=== PATIENT | male | born 1975 | race Caucasian/White ===

== ENCOUNTER 2021-04-12 14:15 | Emergency (ER) | payer OTHER, SELFPAY ==
[2021-04-12] MEDS ORDERED: ONDANSETRON 4 MG/2 ML VIAL ONE (15:36)
[2021-04-12] MEDS ORDERED: MORPHINE 4 MG/ML SYR ONE (15:36)
[2021-04-12] MEDS ORDERED: NA CHLORIDE 0.9% 1,000 ML ONE (16:24)
[2021-04-12] MEDS ORDERED: NA CHLORIDE 0.9% 100 ML ONE ×2 (16:24→16:41)
[2021-04-12] MEDS ORDERED: CEFEPIME 1 GM/VIAL ONE (16:24)
[2021-04-12] MEDS ORDERED: METHOCARBAMOL 1,000 MG/10 ML VIAL IV ONE (16:41)
[2021-04-12] MEDS ORDERED: VANCOMYCIN/NS 1 gm 1 GM/250 ML BAG IVPB ONE (17:00)
[2021-04-12] MEDS ORDERED: CEFEPIME 1 GM in NA CHLORIDE 0.9% 100 ML IV ONE (17:00)
--- NOTE | 2021-04-12 19:19 | RAD REPORT ---
EXAM DESCRIPTION: MRI - Lumbar Spine Wo Lawson - 04/12/2021 7:00 pm CLINICAL HISTORY: Incontinence, left leg numbness COMPARISON: CT dated 07/12/2015 TECHNIQUE: Sagittal T1-weighted, T2-weighted and T2-STIR weighted sequences were obtained. Axial T1 -weighted and heavily T2-weighted sequenceswere obtained through the lumbar disc levels. FINDINGS: Benign lesion in L4 is unchanged. Conus is normal with no clumping or thickening of the cauda equina. T12-L1 level: No significant findings. L1-2 level: No significant findings. L2-3 level: Broad-based disc bulge with mild ligamentum flavum facet hypertrophy but no significant n eural foraminal narrowing or central spinal stenosis. L3-4 level: Broad-based disc bulge with ligamentum flavum and facet hypertrophy without significant c entral spinal stenosis or significant neural foraminal narrowing. L4-5 level: Broad-based disc bulge mild facet and ligamentum flavum hypertrophy is noted. There has b een a right sided laminectomy at this level. There is encroachment on the traversing L5 nerve roots, left greater than right. Disc height loss is present. L5-S1 level: Disc height loss is present. No significant neural foraminal narrowing or central spinal stenosis. IMPRESSION: Mild degenerative disc disease most notably at L4-5 where a combination of factors resul ts in encroachment on the traversing bilateral L5 nerve roots, left greater than right, which could r esult in a left-sided radiculopathy. No central spinal stenosis identified.
--- NOTE | 2021-04-12 19:21 | RAD REPORT ---
EXAM DESCRIPTION: MRI - Thoracic Spine Wo Contr - 04/12/2021 6:51 pm CLINICAL HISTORY: pain COMPARISON: <Comparisons> FINDINGS: The vertebral body heights and disc spaces are maintained. Marrow pattern of the thoracic spine is within normal limits. No significant herniated disc, canal stenosis or foraminal stenosis at any level. No paraspinal mass or hematoma. The thoracic cord is normal in size and signal. IMPRESSION: No significant focal abnormality identified.
[2021-04-12 19:43] LABS: Urine Blood 1+ (Negative); Urine Glucose Negative (Negative); Urine Protein Negative (Negative); Urine Specific Gravity 1.025 (1.005-1.030); Urine pH 5.5 (5.0-7.0)
--- NOTE | 2021-04-12 19:50 | ER ---
Nurse's Notes [facility] Name: Adryan Kimball Age: 46 yrs Sex: Male : 1975 Arrival Date: 04/12/2021 Time: 14:16 Bed 7 Private MD: Diagnosis: Dysuria;Low back pain-L4L5 DDD Presentation: 04/12 14:22 Chief complaint: Patient states: Urinary incontinence today. Pt has chronic back ss problems/ pain and his doctor told him to come to nearest ED immediately for evaluation. Coronavirus screen: Client denies travel out of the [place] in the last 14 days. Ebola Screen: Patient denies exposure to infectious person. Patient denies travel to an Ebola-affected area in the 21 days before illness onset. Initial Sepsis Screen: Does the patient meet any 2 criteria? No. Patient's initial sepsis screen is negative. Does the patient have a suspected source of infection? No. Patient's initial sepsis screen is negative. Risk Assessment: Do you want to hurt yourself or someone else? Patient reports no desire to harm self or others. Onset of symptoms was April 12, 2021. 14:22 Method Of Arrival: Ambulatory ss 14:22 Acuity: LILIA 2 ss Historical: - Allergies: 14:23 Naprosyn; ss - Home Meds: 14:23 Gabapentin [Active]; Tramadol Oral [Active]; Flexeril Oral [Active]; ss - PMHx: 14:23 "extreme anxiety"; ss - PSHx: 14:23 Laminectomy; ss - Immunization history:: Client reports receiving the 2nd dose of the Covid vaccine. - Social history:: Smoking status: Patient reports the use of cigarette tobacco products, smokes one-half pack cigarettes per day. Screenin:47 Abuse screen: Denies threats or abuse. Nutritional screening: No deficits noted. jd3 Tuberculosis screening: No symptoms or risk factors identified. Fall Risk Ambulatory Aid- None/Bed Rest/Nurse Assist (0 pts). Gait- Normal/Bed Rest/Wheelchair (0 pts) Mental Status- Oriented to own ability (0 pts). Total Caruso Fall Scale indicates No Risk (0-24 pts). Assessment: 14:41 General: Appears in no apparent distress. uncomfortable, Behavior is cooperative, jd3 appropriate for age, anxious, restless. Pain: Complains of pain in low back area Quality of pain is described as sharp, shooting, piercing. Neuro: Level of Consciousness is awake, alert, obeys commands, Oriented to person, place, time, situation, Denies weakness blurred vision dizziness, paresthesias. Cardiovascular: Denies chest pain, Capillary refill < 3 seconds Patient's skin is warm and dry. Respiratory: Airway is patent Respiratory effort is even, unlabored, Respiratory pattern is regular, symmetrical, Denies cough, shortness of breath. GI: No signs and/or symptoms were reported involving the gastrointestinal system. Patient currently denies diarrhea, nausea, vomiting. : Reports incontinence, since pt reports waking up with incontinence. reports dribbling urine throughout the day when attempting to pee extra sensitiveness to head of penis. EENT: No signs and/or symptoms were reported regarding the EENT system. Derm: Skin is intact, Skin is dry, Skin is normal, Skin temperature is warm. Musculoskeletal: Circulation, motion, and sensation intact. Range of motion: intact in all extremities. 15:26 Reassessment: No changes from previously documented assessment. Patient and/or family jd3 updated on plan of care and expected duration. Pain level reassessed. Patient is alert, oriented x 3, equal unlabored respirations, skin warm/dry/pink. awaiting MRI. 16:40 Reassessment: Patient appears in no apparent distress at this time. No changes from jd3 previously documented assessment. Patient and/or family updated on plan of care and expected duration. Pain level reassessed. Patient is alert, oriented x 3, equal unlabored respirations, skin warm/dry/pink. awaiting scans. 17:42 Reassessment: Patient appears in no apparent distress at this time. Patient and/or jd3 family updated on plan of care and expected duration. Pain level reassessed. Patient is alert, oriented x 3, equal unlabored respirations, skin warm/dry/pink. Patient states feeling better. 18:43 Reassessment: Patient appears in no apparent distress at this time. No changes from jd3 previously documented assessment. Patient and/or family updated on plan of care and expected duration. Pain level reassessed. Patient is alert, oriented x 3, equal unlabored respirations, skin warm/dry/pink. 20:00 Reassessment: Patient appears in no apparent distress at this time. Patient is unhappy dc2 with visit and information given . Dr. Ching informed and will speak to patient. 20:28 Reassessment: Pt states he is satisfied with speaking to dr. Ching, is pleasant at dc2 this time. VSS, Discharge papers reviewed and pt voies understanding. Vital Signs: 14:22 BP 140 / 101; Pulse 131; Resp 18; Temp 97.0(TE); Pulse Ox 99% on R/A; Weight 112.49 kg; ss Height 6 ft. 0 in. (182.88 cm); Pain 8/10; 14:46 Pulse 126; Resp 18 S; Pulse Ox 97% on R/A; jd3 16:40 BP 111 / 83; Pulse 86; Resp 17 S; Pulse Ox 97% on R/A; jd3 17:42 BP 123 / 78; Pulse 80; Resp 17 S; Pulse Ox 98% on R/A; jd3 18:44 BP 123 / 78; Pulse 71; Resp 16 S; Pulse Ox 98% on R/A; jd3 19:45 BP 143 / 87; Pulse 97; Resp 20; Temp 97.1; Pulse Ox 98% ; Pain 8/10; dc2 14:22 Body Mass Index 33.63 (112.49 kg, 182.88 cm) ss ED Course: 14:16 Patient arrived in ED. ds1 14:23 Triage completed. ss 14:23 Arm band placed on right wrist. ss 14:30 Serafin Cruz, RN is Primary Nurse. jd3 14:47 Patient has correct armband on for positive identification. Placed in gown. Bed in low jd3 position. Call light in reach. Pulse ox on. NIBP on. 15:25 Warm blanket given. Verbal reassurance given. jd3 15:25 Inserted saline lock: 20 gauge in left wrist, using aseptic technique. jd3 15:31 Dash Bingham MD is Attending Physician. kdr 16:39 Inserted saline lock: 20 gauge in right antecubital area, using aseptic technique. jd3 18:44 Attending Physician role handed off by Dash Bingham MD denia 18:44 Mt Ching MD is Attending Physician. denia 18:51 MRI Lumbar Spine wo Con In Process Unspecified. EDMS 18:51 Thoracic Spine Wo Contr In Process Unspecified. EDMS 19:50 Timoteo Hunter MD is Referral Physician. denia 19:50 Nato Dueñas MD is Referral Physician. denia 20:05 ED physician to see patient. dc2 Administered Medications: 15:13 Drug: Zofran (Ondansetron) 4 mg Route: IVP; Site: left wrist; ch5 16:00 Follow up: Response: No adverse reaction jd3 15:14 Drug: morphine 4 mg Route: IVP; Site: left wrist; ch5 16:00 Follow up: Response: No adverse reaction; RASS: Alert and Calm (0) jd3 16:00 Drug: Cefepime 1 grams Route: IVPB; Rate: 200 ml/hr; Infused Over: 30 mins; Site: left jd3 wrist; 16:39 Follow up: Response: No adverse reaction; IV Status: Completed infusion jd3 19:30 Follow up: IV Status: Completed infusion; IV Intake: 100ml dc2 16:11 Drug: NS 0.9% 1000 ml Route: IV; Rate: 1 bolus; Site: left wrist; jd3 16:39 Drug: vancoMYCIN 1 grams Route: IVPB; Infused Over: 2 hrs; Site: left wrist; jd3 16:39 Drug: Robaxin (methocarbamol) 1 grams Route: IVPB; Infused Over: 1 hrs; Site: right jd3 antecubital; 19:33 Follow up: IV Status: Completed infusion; IV Intake: 100ml dc2 19:58 Follow up: IV Status: Completed infusion; IV Intake: 100ml dc2 19:45 Drug: Flomax (tamsulosin) 0.4 mg Route: PO; dc2 19:45 Drug: Decadron - Dexamethasone 10 mg Route: IVP; Site: right antecubital; dc2 19:45 Drug: Valium (diazepam) 5 mg Route: PO; dc2 Intake: 19:30 IV: 100ml; Total: 100ml. dc2 19:33 IV: 100ml; Total: 200ml. dc2 19:58 IV: 100ml; Total: 300ml. dc2 Outcome: 19:49 Discharge ordered by . denia 20:29 Discharged to home ambulatory. dc2 20:29 Condition: stable 20:29 Discharge instructions given to Instructed on discharge instructions, follow up and referral plans. Demonstrated understanding of instructions, follow-up care, Prescriptions given X 4. 20:30 Patient left the ED. dc2 Signatures: Dispatcher [employer] EDPA Mt Ching MD MD cha Rittger, Kevin, MD MD kdr Sanford, Demi ds1 Evelia Sage RN RN ss Serafin Cruz RN RN jd3 Ferdinand Schaefer RN RN ch5 Betty Spencer RN RN dc2
--- NOTE | 2021-04-12 19:50 | EDPHYS ---
Physician Documentation [facility] Name: Adryan Kimball Age: 46 yrs Sex: Male : 1975 Arrival Date: 04/12/2021 Time: 14:16 Bed 7 Private MD: Mt Curran HPI: 04/12 18:25 This 46 yrs old Male presents to ER via Ambulatory with complaints of Urinary kdr Incontinence. Historical: - Allergies: 14:23 Naprosyn; ss - Home Meds: 14:23 Gabapentin [Active]; Tramadol Oral [Active]; Flexeril Oral [Active]; ss - PMHx: 14:23 "extreme anxiety"; ss - PSHx: 14:23 Laminectomy; ss - Immunization history:: Client reports receiving the 2nd dose of the Covid vaccine. - Social history:: Smoking status: Patient reports the use of cigarette tobacco products, smokes one-half pack cigarettes per day. ROS: 19:42 Constitutional: Negative for fever, chills, and weight loss, Eyes: Negative for injury, denia pain, redness, and discharge, ENT: Negative for injury, pain, and discharge, Neck: Negative for injury, pain, and swelling, Cardiovascular: Negative for chest pain, palpitations, and edema, Respiratory: Negative for shortness of breath, cough, wheezing, and pleuritic chest pain, Abdomen/GI: Negative for abdominal pain, nausea, vomiting, diarrhea, and constipation, : Negative for injury, bleeding, discharge, and swelling, MS/Extremity: Negative for injury and deformity, Skin: Negative for injury, rash, and discoloration, Neuro: Negative for headache, weakness, numbness, tingling, and seizure, Psych: Negative for depression, anxiety, suicide ideation, homicidal ideation, and hallucinations, Allergy/Immunology: Negative for hives, rash, and allergies, Endocrine: Negative for neck swelling, polydipsia, polyuria, polyphagia, and marked weight changes, Hematologic/Lymphatic: Negative for swollen nodes, abnormal bleeding, and unusual bruising. 19:42 Back: Positive for decreased range of motion, pain at rest, of the lumbar area. 19:42 : Positive for bladder incontinence poor stream. Exam: 19:42 Constitutional: This is a well developed, well nourished patient who is awake, alert, denia and in no acute distress. Head/Face: Normocephalic, atraumatic. Eyes: Pupils equal round and reactive to light, extra-ocular motions intact. Lids and lashes normal. Conjunctiva and sclera are non-icteric and not injected. Cornea within normal limits. Periorbital areas with no swelling, redness, or edema. ENT: Nares patent. No nasal discharge, no septal abnormalities noted. Tympanic membranes are normal and external auditory canals are clear. Oropharynx with no redness, swelling, or masses, exudates, or evidence of obstruction, uvula midline. Mucous membranes moist. Neck: Trachea midline, no thyromegaly or masses palpated, and no cervical lymphadenopathy. Supple, full range of motion without nuchal rigidity, or vertebral point tenderness. No Meningismus. Chest/axilla: Normal chest wall appearance and motion. Nontender with no deformity. No lesions are appreciated. Cardiovascular: Regular rate and rhythm with a normal S1 and S2. No gallops, murmurs, or rubs. Normal PMI, no JVD. No pulse deficits. Respiratory: Lungs have equal breath sounds bilaterally, clear to auscultation and percussion. No rales, rhonchi or wheezes noted. No increased work of breathing, no retractions or nasal flaring. Abdomen/GI: Soft, non-tender, with normal bowel sounds. No distension or tympany. No guarding or rebound. No evidence of tenderness throughout. Male : Normal genitalia with no discharge or lesions. Skin: Warm, dry with normal turgor. Normal color with no rashes, no lesions, and no evidence of cellulitis. MS/ Extremity: Pulses equal, no cyanosis. Neurovascular intact. Full, normal range of motion. Neuro: Awake and alert, GCS 15, oriented to person, place, time, and situation. Cranial nerves II-XII grossly intact. Motor strength 5/5 in all extremities. Sensory grossly intact. Cerebellar exam normal. Normal gait. Psych: Awake, alert, with orientation to person, place and time. Behavior, mood, and affect are within normal limits. 19:42 Back: pain, that is mild, ROM is decreased, with flexion, with extension, normal spinal alignment noted, CVA tenderness, is absent, vertebral tenderness, is not appreciated, muscle spasm, is appreciated in the left low back, left mid back, right mid back and right low back. Vital Signs: 14:22 BP 140 / 101; Pulse 131; Resp 18; Temp 97.0(TE); Pulse Ox 99% on R/A; Weight 112.49 kg; ss Height 6 ft. 0 in. (182.88 cm); Pain 8/10; 14:46 Pulse 126; Resp 18 S; Pulse Ox 97% on R/A; jd3 16:40 BP 111 / 83; Pulse 86; Resp 17 S; Pulse Ox 97% on R/A; jd3 17:42 BP 123 / 78; Pulse 80; Resp 17 S; Pulse Ox 98% on R/A; jd3 18:44 BP 123 / 78; Pulse 71; Resp 16 S; Pulse Ox 98% on R/A; jd3 19:45 BP 143 / 87; Pulse 97; Resp 20; Temp 97.1; Pulse Ox 98% ; Pain 8/10; dc2 14:22 Body Mass Index 33.63 (112.49 kg, 182.88 cm) ss MDM: 18:44 Patient medically screened. [facility] 04/13 16:54 Data reviewed: vital signs, nurses notes, lab test result(s), radiologic studies. kdr Counseling: I had a detailed discussion with the patient and/or guardian regarding: the historical points, exam findings, and any diagnostic results supporting the discharge/admit diagnosis, lab results, radiology results, the need for outpatient follow up. 04/12 19:43 Order name: Urine Dipstick-Ancillary; Complete Time: 20:06 [facility] 04/12 15:05 Order name: MRI Lumbar Spine wo Con; Complete Time: 19:29 [facility] 04/12 15:46 Order name: Thoracic Spine Wo Contr; Complete Time: 19:29 [facility] 04/12 15:05 Order name: Saline Lock; Complete Time: 15:13 [facility] Administered Medications: 04/12 15:13 Drug: Zofran (Ondansetron) 4 mg Route: IVP; Site: left wrist; ch5 16:00 Follow up: Response: No adverse reaction j 15:14 Drug: morphine 4 mg Route: IVP; Site: left wrist; ch5 16:00 Follow up: Response: No adverse reaction; RASS: Alert and Calm (0) j 16:00 Drug: Cefepime 1 grams Route: IVPB; Rate: 200 ml/hr; Infused Over: 30 mins; Site: left jd3 wrist; 16:39 Follow up: Response: No adverse reaction; IV Status: Completed infusion jd3 19:30 Follow up: IV Status: Completed infusion; IV Intake: 100ml dc2 16:11 Drug: NS 0.9% 1000 ml Route: IV; Rate: 1 bolus; Site: left wrist; jd3 16:39 Drug: vancoMYCIN 1 grams Route: IVPB; Infused Over: 2 hrs; Site: left wrist; jd3 16:39 Drug: Robaxin (methocarbamol) 1 grams Route: IVPB; Infused Over: 1 hrs; Site: right jd3 antecubital; 19:33 Follow up: IV Status: Completed infusion; IV Intake: 100ml dc2 19:58 Follow up: IV Status: Completed infusion; IV Intake: 100ml dc2 19:45 Drug: Flomax (tamsulosin) 0.4 mg Route: PO; dc2 19:45 Drug: Decadron - Dexamethasone 10 mg Route: IVP; Site: right antecubital; dc2 19:45 Drug: Valium (diazepam) 5 mg Route: PO; dc2 Disposition Summary: 04/12/21 19:49 Discharge Ordered Location: Home denia Problem: new denia Symptoms: have improved denia Condition: Stable denia Diagnosis - Dysuria denia - Low back pain - L4L5 DDD denia Followup: denia - With: Private Physician - When: 2 - 3 days - Reason: Recheck today's complaints, Continuance of care, Re-evaluation by your physician Followup: denia - With: Timoteo Hunter MD - When: 5 - 6 days - Reason: Recheck today's complaints, Re-evaluation by your physician Followup: denia - With: Nato Dueñas MD - When: 2 - 3 days - Reason: Recheck today's complaints, Re-evaluation by your physician Discharge Instructions: - Discharge Summary Sheet denia - Dysuria denia - Musculoskeletal Pain denia - Back Injury Prevention, [id number] denia - Chronic Back Pain, [id number] denia - Benign Prostatic Hyperplasia denia Forms: - Medication Reconciliation Form denia - Thank You Letter denia - Antibiotic Education denia - Prescription Opioid Use denia Prescriptions: - dexamethasone 2 mg Oral tablet - take 1 tablet by ORAL route 2 times per day; 10 tablet; Refills: 0, Product denia Selection Permitted - tamsulosin 0.4 mg Oral capsule - take 1 capsule by ORAL route once daily 1/2 hour following the same meal each [facility] day; 30 capsule; Refills: 0, Product Selection Permitted - Cipro 500 mg Oral Tablet - take 1 tablet by ORAL route every 12 hours for 7 days; 14 tablet; Refills: 0, [facility] Product Selection Permitted - Cyclobenzaprine 5 mg Oral Tablet - take 1 tablet by ORAL route 3 times per day As needed; 15 tablet; Refills: 0, [facility] Product Selection Permitted Signatures: Dispatcher [employer] EDMt Mata MD MD cha Rittger, Kevin, MD MD kdr Mickail, Joel, PA PA jmm Smirch, Shelby, RN RN ss Serafin Cruz RN RN jd3 Ferdinand Schaefer RN RN ch5 Betty Spencer RN RN dc2
[2021-04-12] MEDS ORDERED: DIAZEPAM 5 MG TABLET ONE (20:12)
[2021-04-12] MEDS ORDERED: TAMSULOSIN 0.4 MG SR CAP ONE (20:12)
[2021-04-12] MEDS ORDERED: dexAMETHasone 10 MG/ML VIAL ONE (20:12)
[2021-04-12 20:42] VITALS: O2SAT 98
[2021-04-12 20:45] VITALS: BP 143/87; TEMP 97.1
== END 2021-04-12 20:30 | disposition home or self-care (01) ==
LOC: ER 14:15
DX: R30.0 Dysuria (principal); M51.36 Other intervertebral disc degeneration, lumbar region; F41.9 Anxiety disorder, unspecified; F17.210 Nicotine dependence, cigarettes, uncomplicated; Z88.6 Allergy status to analgesic agent
CPT/HCPCS: 72146; 72148; 81003; 99284; J0692; J1100; J2405; J2800; J3370; J7030

== ENCOUNTER 2022-03-24 14:33 | Emergency (ER) | payer SELFPAY ==
--- OUTSIDE RECORDS SUMMARY | 2022-03-24 14:41 | XMS REPORT | Continuity of Care Document ---
:1975 Author Organization [facility] t Address [address] [place] [address] Care Team Providers Name Role Phone ALANA LAMBERT Primary Care Physician Unavailable LIZZIE MCCABE Attending Clinician Unavailable Alana Lambert MD Attending Clinician [phone] MARYAM NAVARRO Attending Clinician Unavailable Maryam Cobb Attending Clinician ALANA LAMBERT Attending Clinician Unavailable Lizzie Mccabe MD Attending Clinician Doctor Unassigned, [place] Attending Clinician Unavailable Abel Solomon MD Attending Clinician [place] Attending Clinician Unavailable Natividad_BRIDGET Attending Clinician Unavailable [place]ad Admitting Clinician Unavailable Natividad_BRIDGET Admitting Clinician Unavailable Payers Payer Name Policy Type Policy Number Effective Date Expiration Date S ource Problems Condition Condition Condition Status Onset Resolution Last Treating Co mments Source Name Details Category Date Date Treatment Clinician Date Abnormal Abnormal Disease Active 2020-07 Unive rs defecation defecation 0-06 it y of 00:00: [place] [facility] Branch Prostate Prostate Disease Active 2020-07 Unive rs enlargemen enlargemen 0-05 it y of t t 00:00: [place] [facility] Urinary Urinary Disease Active 2020-07 Univers problem problem 0-05 ity of 00:00: [place] [facility] Chronic Chronic Disease Active Univers low back low back 4-28 ity of pain pain 00:00: [place] [facility] Chronic Chronic Disease Active Univers anxiety anxiety 4-28 ity of 00:00: [place] [facility] Lumbar Lumbar Disease Active 2004-07 Univers herniated herniated 0- ity of disc disc 00:00: [place] [facility] No known No known Disease Metho di active active st problems problems Hospit a l Allergies, Adverse Reactions, Alerts Allergy Allergy Status Severity Reaction(s) Onset Inactive Treating Comm ents Source Name Type Date Date Clinician Naproxen Propensi Active Swelling Meth gordon Sodium ty to 07-02 st adverse 00:00: Hospita reaction 00 l s to drug NO KNOWN Drug Active Univers ALLERGIE Class ity of S [facility] Aleve Allergy Active [place] to Family substanc Practic e e Social History Social Habit Start Date Stop Date Quantity Comments Source History of Cigarette Smoker Universi ty of tobacco use [facility] Exposure to 2022-03-07 2022-03-17 Not sure [facility]-CoV-2 00:00:00 18:24:00 [facility] (event) [place] Alcohol intake 2022-03-17 2022-03-17 Current drinker Unive rsity of 00:00:00 00:00:00 of alcohol [facility] (finding) [place] Tobacco use and 2022-02-22 2022-02-22 Smokeless tobacco [facility] exposure 00:00:00 00:00:00 non-user Sex Ass[birth year] At [birth year] [facility] [place] 00:00:00 00:00:00 Smoking Status Start Date Stop Date Source Never smoked tobacco [facility] Ex-smoker 2022-01-17 00:00:00 2022-01-17 00:00:00 [facility] [place] [facility] Medications Ordered Filled Start Stop Current Ordering Indication Dosage Frequency Signature Comments Components Source Medication Medication Date Date Medication? Clinician (SIG) Name Name LORazepam Yes lorazepam Uni vers 0.5 mg 9-15 0.5 mg ity of tablet 10:56: tablet [place] [id number] TAKE 1 Medical TABLET BY Branch MOUTH TWICE DAILY NEEDED LORazepam Yes lorazepam Uni vers 0.5 mg 9-15 0.5 mg ity of tablet 10:56: tablet [place] 48 TAKE 1 Medical TABLET BY Branch MOUTH TWICE DAILY NEEDED LORazepam Yes lorazepam Uni vers 0.5 mg 9-15 0.5 mg ity of tablet 10:56: tablet [place] 48 TAKE 1 Medical TABLET BY Branch MOUTH TWICE DAILY NEEDED hydrOXYzine Yes [id number] Take 1 -2 Univers 25 mg 9-15 cap at ity of capsule 00:00: bedtime [place] [address] for Medical insomnia Branch or anxiety hydrOXYzine Yes [id number] Take 1 -2 Univers 25 mg 9-15 cap at ity of capsule 00:00: bedtime [place] [address] for Medical insomnia Branch or anxiety hydrOXYzine Yes [id number] Take 1 -2 Univers 25 mg 9-15 cap at ity of capsule 00:00: bedtime [place] [address] for Medical insomnia Branch or anxiety meloxicam 2021- Yes [id number] 15mg Take 1 Univers 15 mg 9-06-01 tablet by ity of tablet 00:00: 05:59 mouth in [place] 00 :00 the Medical morning Branch for 90 days. meloxicam 2021- Yes [id number] 15mg Take 1 Univers 15 mg 9-06-01 tablet by ity of tablet 00:00: 05:59 mouth in [place] 00 :00 the Medical morning Branch for 90 days. meloxicam 2021- Yes [id number] 15mg Take 1 Univers 15 mg 9-07 13- tablet by ity of tablet 00:00: 05:59 mouth in [place] 00 :00 the Medical morning Branch for 90 days. meloxicam 2021- Yes [id number] 15mg Take 1 Univers 15 mg 9-06-01 tablet by ity of tablet 00:00: 05:59 mouth in [place] 00 :00 the Medical morning Branch for 90 days. meloxicam 2021- Yes [id number] 15mg Take 1 Univers 15 mg 03-02 tablet by ity of tablet 00:00: 05:59 mouth in [place] 00 :00 the [facility] for 90 days. meloxicam 2021- Yes [id number] 15mg Take 1 Univers 15 mg 03-02 tablet by ity of tablet 00:00: 05:59 mouth in [place] 00 :00 the [facility] for 90 days. meloxicam Yes 15mg QD Take 1 Method i (MOBIC) 15 8-29 tablet (15 st mg tablet 00:00: mg total) Hos linda 00 by mouth l daily. gabapentin 2021- Yes [id number] 300mg Take 1 Univers 300 mg 8-29 11-28 capsule by ity of capsule 00:00: 05:59 mouth in [place] 00 :00 [facility] and 1 capsule at noon and 1 capsule in the evening. Do all this for 90 days. gabapentin 2021- Yes [id number] 300mg Take 1 Univers 300 mg 8-29 11-28 capsule by ity of capsule 00:00: 05:59 mouth in [place] 00 :00 [facility] and 1 capsule at noon and 1 capsule in the evening. Do all this for 90 days. gabapentin 2021- Yes [id number] 300mg Take 1 Univers 300 mg 8-29 11-28 capsule by ity of capsule 00:00: 05:59 mouth in [place] 00 :00 the [facility] and 1 capsule at noon and 1 capsule in the evening. Do all this for 90 days. gabapentin 2021- Yes [id number] 300mg Take 1 Univers 300 mg 8-29 11-28 capsule by ity of capsule 00:00: 05:59 mouth in [place] 00 :00 [facility] and 1 capsule at noon and 1 capsule in the evening. Do all this for 90 days. gabapentin 2021- Yes [id number] 300mg Take 1 Univers 300 mg 8-29 11-28 capsule by ity of capsule 00:00: 05:59 mouth in [place] 00 :00 [facility] and 1 capsule at noon and 1 capsule in the evening. Do all this for 90 days. gabapentin 2021- Yes [id number] 300mg Take 1 Univers 300 mg 02-27- capsule by ity of capsule 00:00: 05:59 mouth in [place] 00 :00 the Medical morning Branch and 1 capsule at noon and 1 capsule in the evening. Do all this for 90 days. gabapentin 2021- Yes [id number] 300mg Take 1 Univers 300 mg 02-27- capsule by ity of capsule 00:00: 05:59 mouth in [place] 00 :00 the [facility] morning Branch and 1 capsule at noon and 1 capsule in the evening. Do all this for 90 days. methylPREDN 2021- No follow Met hodi ISolone 02-[address] (MEDROL 00:00: 04:59 directions Hos linda DOSEPAK) 4 00 :00 l mg tablet tamsulosin 0 Yes [id number] .8mg Take 2 Univers 0.4 mg 24 7-06 capsules ity of hr capsule 00:00: by mouth [place] 00 at Medical bedtime. Branch tamsulosin 0 Yes [id number] .8mg Take 2 Univers 0.4 mg 24 7-06 capsules ity of hr capsule 00:00: by mouth [place] 00 at Medical bedtime. Branch tamsulosin 0 Yes [id number] .8mg Take 2 Univers 0.4 mg 24 7-06 capsules ity of hr capsule 00:00: by mouth [place] 00 at Medical bedtime. Branch tamsulosin 0 Yes [id number] .8mg Take 2 Univers 0.4 mg 24 7-06 capsules ity of hr capsule 00:00: by mouth [place] 00 at Medical bedtime. Branch tamsulosin 0 Yes [id number] .8mg Take 2 Univers 0.4 mg 24 7-06 capsules ity of hr capsule 00:00: by mouth [place] 00 at Medical bedtime. Branch tamsulosin 2021-0 Yes [id number] .8mg Take 2 Univers 0.4 mg 24 7-06 capsules ity of hr capsule 00:00: by mouth [place] 00 at Medical bedtime. Branch tamsulosin 2021-0 Yes [id number] .8mg Take 2 Univers 0.4 mg 24 7-06 capsules ity of hr capsule 00:00: by mouth [place] 00 at Medical bedtime. Branch LORazepam 2021-0 Yes lorazepam Uni vers 0.5 mg 6-23 0.5 mg ity of tablet 10:36: tablet [place] 46 TAKE 1 Medical TABLET BY Branch MOUTH TWICE DAILY NEEDED LORazepam 2021-0 Yes lorazepam Uni vers 0.5 mg 6-23 0.5 mg ity of tablet 10:36: tablet [place] 46 TAKE 1 Medical TABLET BY Branch MOUTH TWICE DAILY NEEDED LORazepam 2021-0 Yes lorazepam Uni vers 0.5 mg 6-23 0.5 mg ity of tablet 10:36: tablet [place] 46 TAKE 1 Medical TABLET BY Branch MOUTH TWICE DAILY NEEDED LORazepam 2021-0 Yes lorazepam Uni vers 0.5 mg 6-23 0.5 mg ity of tablet 10:36: tablet [place] 46 TAKE 1 Medical TABLET BY Branch MOUTH TWICE DAILY NEEDED GABAPENTIN 2021-0 2022- No [id number] TAKE 1 Univers 300 mg 3-22 02- CAPSULE BY ity of capsule 00:00: 00:00 MOUTH [place] 00 :00 THREE Medical TIMES Branch DAILY traMADoL 50 2021-0 Yes [id number] 50mg Take 1 Univ ers mg tablet 2-01 tablet by ity o f 00:00: mouth [place] 00 every 6 Medical (six) Branch hours as needed for Pain (scale 4-6) or Pain (scale 7-10). Indication s: acute pain traMADoL 50 2021-0 Yes [id number] 50mg Take 1 Univ ers mg tablet 2-01 tablet by ity o f 00:00: mouth [place] 00 every 6 Medical (six) Branch hours as needed for Pain (scale 4-6) or Pain (scale 7-10). Indication s: acute pain traMADoL 50 2021-0 Yes [id number] 50mg Take 1 Univ ers mg tablet 2-01 tablet by ity o f 00:00: mouth [place] 00 every 6 Medical (six) Branch hours as needed for Pain (scale 4-6) or Pain (scale 7-10). Indication s: acute pain traMADoL 50 2021-0 Yes [id number] 50mg Take 1 Univ ers mg tablet 2-01 tablet by ity o f 00:00: mouth [place] 00 every 6 Medical (six) Branch hours as needed for Pain (scale 4-6) or Pain (scale 7-10). Indication s: acute pain traMADoL 50 2-0 Yes [id number] 50mg Take 1 Univ ers mg tablet 2-01 tablet by ity o f 00:00: mouth [place] 00 every 6 Medical (six) Branch hours as needed for Pain (scale 4-6) or Pain (scale 7-10). Indication s: acute pain traMADoL 50 2-0 Yes [id number] 50mg Take 1 Univ ers mg tablet 2-01 tablet by ity o f 00:00: mouth [place] 00 every 6 Medical (six) Branch hours as needed for Pain (scale 4-6) or Pain (scale 7-10). Indication s: acute pain traMADoL 50 2-0 Yes [id number] 50mg Take 1 Univ ers mg tablet 2-01 tablet by ity o f 00:00: mouth [place] 00 every 6 Medical (six) Branch hours as needed for Pain (scale 4-6) or Pain (scale 7-10). Indication s: acute pain cefdinir 2022-0 Yes [id number] 300mg Take 1 Un ja 300 mg 1-27 capsule by ity of capsule 00:00: mouth [place] 00 every 12 Medical (twelve) Branch hours. cefdinir 2022-0 Yes [id number] 300mg Take 1 Un ja 300 mg 1-27 capsule by ity of capsule 00:00: mouth [place] 00 every 12 Medical (twelve) Branch hours. cefdinir 2022-0 Yes [id number] 300mg Take 1 Un ja 300 mg 1-27 capsule by ity of capsule 00:00: mouth [place] 00 every 12 Medical (twelve) Branch hours. cefdinir 2022-0 Yes [id number] 300mg Take 1 Un ja 300 mg 1-27 capsule by ity of capsule 00:00: mouth [place] 00 every 12 Medical (twelve) Branch hours. traMADoL 50 2-0 Yes 50mg Take 50 mg Univers mg tablet 1-25 by mouth ity of 10:11: every 6 [place] 34 (six) Medical hours as Branch needed. traMADoL 50 2022-0 Yes 50mg Take 50 mg Univers mg tablet 1-25 by mouth ity of 10:11: every 6 [place] 34 (six) Medical hours as Branch needed. traMADoL 50 2-0 Yes 50mg Take 50 mg Univers mg tablet 1-25 by mouth ity of 10:11: every 6 [place] 34 (six) Medical hours as Branch needed. traMADoL 50 2021-0 Yes 50mg Take 50 mg Univers mg tablet 1-25 by mouth ity of 10:11: every 6 [place] [address] (six) Medical hours as Branch needed. traMADoL 50 2021-0 Yes 50mg Take 50 mg Univers mg tablet 1-25 by mouth ity of 10:11: every 6 [place] [address] (six) Medical hours as Branch needed. traMADoL 50 2021-0 Yes 50mg Take 50 mg Univers mg tablet 1-25 by mouth ity of 10:11: every 6 [place] [address] (six) Medical hours as Branch needed. traMADoL 50 2021-0 Yes 50mg Take 50 mg Univers mg tablet 1-25 by mouth ity of 10:11: every 6 [place] [address] (six) Medical hours as Branch needed. phenazopyri 2021-0 Yes [id number] 200mg Take 1 Univers dine 200 mg 1-25 tablet by ity of tablet 00:00: mouth 3 [place] 00 (three) Medical times Branch daily after meals. phenazopyri 2021-0 Yes [id number] 200mg Take 1 Univers dine 200 mg 1-25 tablet by ity of tablet 00:00: mouth 3 [place] 00 (three) Medical times Branch daily after meals. phenazopyri 2021-0 Yes [id number] 200mg Take 1 Univers dine 200 mg 1-25 tablet by ity of tablet 00:00: mouth 3 [place] 00 (three) Medical times Branch daily after meals. phenazopyri 2021-0 Yes [id number] 200mg Take 1 Univers dine 200 mg 1-25 tablet by ity of tablet 00:00: mouth 3 [place] 00 (three) Medical times Branch daily after meals. testosteron 2021-0 Yes [id number] 200mg 1 mL by Univers e cypionate 1-19 Intramuscu it y of 200 mg/mL 00:00: lar route [place] as injection 00 every 2 Medical (two) Branch weeks. testosteron 2021-0 Yes [id number] 200mg 1 mL by Univers e cypionate 1-19 Intramuscu it y of 200 mg/mL 00:00: lar route [place] as injection 00 every 2 Medical (two) Branch weeks. testosteron 2021-0 Yes [id number] 200mg 1 mL by Univers e cypionate 1-19 Intramuscu it y of 200 mg/mL 00:00: lar route [place] as injection 00 every 2 Medical (two) Branch weeks. testosteron 2021-0 Yes [id number] 200mg 1 mL by Univers e cypionate 1-19 Intramuscu it y of 200 mg/mL 00:00: lar route [place] as injection 00 every 2 Medical (two) Branch weeks. testosteron 2021-0 Yes [id number] 200mg 1 mL by Univers e cypionate 1-19 Intramuscu it y of 200 mg/mL 00:00: lar route [place] as injection 00 every 2 Medical (two) Branch weeks. testosteron 0 Yes [id number] 200mg 1 mL by Univers e cypionate 1-19 Intramuscu it y of 200 mg/mL 00:00: lar route [place] as injection 00 every 2 Medical (two) Branch weeks. testosteron Yes [id number] 200mg 1 mL by Univers e cypionate 1-19 Intramuscu it y of 200 mg/mL 00:00: lar route [place] as injection 00 every 2 Medical (two) Branch weeks. hydrOXYzine 2020-07 Yes [id number] Take 1 -2 Univers 25 mg 0-22 cap at ity of capsule 00:00: bedtime [place] for Medical insomnia Branch or anxiety cyclobenzap 2020-07 Yes [id number] 10mg Take 1 Univers rine 10 mg 0-22 tablet by ity of tablet 00:00: mouth 2 [place] (two) Medical times Branch daily with meals as needed for Muscle Spasms. hydrOXYzine 2020-07 Yes [id number] Take 1 -2 Univers 25 mg 0-22 cap at ity of capsule 00:00: bedtime [place] for Medical insomnia Branch or anxiety cyclobenzap 2020-07 Yes [id number] 10mg Take 1 Univers rine 10 mg 0-22 tablet by ity of tablet 00:00: mouth 2 [place] (two) Medical times Branch daily with meals as needed for Muscle Spasms. hydrOXYzine 2020-07 Yes [id number] Take 1 -2 Univers 25 mg 0-22 cap at ity of capsule 00:00: bedtime [place] for Medical insomnia Branch or anxiety cyclobenzap 2020-07 Yes [id number] 10mg Take 1 Univers rine 10 mg 0-22 tablet by ity of tablet 00:00: mouth 2 (two) Medical times Branch daily with meals as needed for Muscle Spasms. hydrOXYzine 2020-07 Yes [id number] Take 1 -2 Univers 25 mg 0-22 cap at ity of capsule 00:00: bedtime for Medical insomnia Branch or anxiety cyclobenzap 2020-07 Yes [id number] 10mg Take 1 Univers rine 10 mg 0-22 tablet by ity of tablet 00:00: mouth 2 (two) Medical times Branch daily with meals as needed for Muscle Spasms. cyclobenzap 2020-07 Yes [id number] 10mg Take 1 Univers rine 10 mg 0-22 tablet by ity of tablet 00:00: mouth () Medical times Branch daily with meals as needed for Muscle Spasms. cyclobenzap 2020-07 Yes [id number] 10mg Take 1 Univers rine 10 mg 0-22 tablet by ity of tablet 00:00: mouth () Medical times Branch daily with meals as needed for Muscle Spasms. cyclobenzap 2020-07 Yes [id number] 10mg Take 1 Univers rine 10 mg 0-22 tablet by ity of tablet 00:00: mouth (two) Medical times Branch daily with meals as needed for Muscle Spasms. gabapentin gabapentin No 1capsul TID gabapentin [place] 300 mg 300 mg e(s) 300 mg Family capsule capsule capsule Practi c Take 1 Take 1 Take 1 e capsule 3 capsule 3 capsule 3 times a day times a day times a by oral by oral day by route for route for oral route 10 days. 10 days. for 10 days. lorazepam lorazepam No lorazepam [place] 0.5 mg 0.5 mg 0.5 mg Family tablet TAKE tablet TAKE tablet Practic 1 TABLET BY 1 TABLET BY TAKE 1 e MOUTH TWICE MOUTH TWICE TABLET BY DAILY DAILY MOUTH NEEDED NEEDED TWICE DAILY NEEDED pantoprazol pantoprazol No pantoprazo [place] e 40 mg e 40 mg le 40 mg Famil y tablet,kelsie tablet,kelsie tablet,del Practic yed release yed release ayed e TK 1 T PO TK 1 T PO release TK QD IN THE QD IN THE 1 T PO QD MORNING MORNING IN THE MORNING tramadol 50 tramadol 50 No 1 TID tramadol [place] mg tablet mg tablet 50 mg Fami ly Take 1 Take 1 tablet Practic tablet 3 tablet 3 Take 1 e times a day times a day tablet 3 by oral by oral times a route. for route. for day by severe pain severe pain oral route. for severe pain escitalopra escitalopra No escitalopr [place] m 10 mg m 10 mg am 10 mg Famil y tablet TAKE tablet TAKE tablet Practic 1 TABLET BY 1 TABLET BY TAKE 1 e MOUTH EVERY MOUTH EVERY TABLET BY DAY DAY MOUTH EVERY DAY Immunizations Ordered Filled Immunization Date Status Comments [facility] e Immunization Name Name SARS-COV-2 COVID-19 2021-02-17 Completed Unive rsity of PFIZER VACCINE 00:00:00 [facility] SARS-COV-2 COVID-19 2021-02-17 Completed Unive rsity of PFIZER VACCINE 00:00:00 [facility] SARS-COV-2 COVID-19 2021-02-17 Completed Unive rsity of PFIZER VACCINE 00:00:00 [facility] SARS-COV-2 COVID-19 2021-02-17 Completed Unive rsity of PFIZER VACCINE 00:00:00 [facility] SARS-COV-2 COVID-19 2021-02-17 Completed Unive rsity of PFIZER VACCINE 00:00:00 [facility] SARS-COV-2 COVID-19 2021-02-17 Completed Unive rsity of PFIZER VACCINE 00:00:00 [facility] SARS-COV-2 COVID-19 2021-02-17 Completed Unive rsity of PFIZER VACCINE 00:00:00 [facility] SARS-COV-2 COVID-19 2021-01-28 Completed Unive rsity of PFIZER VACCINE 00:00:00 [facility] SARS-COV-2 COVID-19 2021-01-28 Completed Unive rsity of PFIZER VACCINE 00:00:00 [facility] SARS-COV-2 COVID-19 2021-01-28 Completed Unive rsity of PFIZER VACCINE 00:00:00 [facility] SARS-COV-2 COVID-19 2021-01-28 Completed Unive rsity of PFIZER VACCINE 00:00:00 [facility] SARS-COV-2 COVID-19 2021-01-28 Completed Unive rsity of PFIZER VACCINE 00:00:00 [facility] SARS-COV-2 COVID-19 2021-01-28 Completed Unive rsity of PFIZER VACCINE 00:00:00 [facility] SARS-COV-2 COVID-19 2021-01-28 Completed Unive rsity of PFIZER VACCINE 00:00:00 [facility] COVID-19, mRNA, COVID-19, mRNA, 2021-01-28 Completed [facility] LNP-S, PF, 30 LNP-S, PF, 30 00:00:00 Practice mcg/0.3 mL dose mcg/0.3 mL dose SARS-COV-2 COVID-19 2021-01-27 Completed Unive rsity of PFIZER VACCINE 00:00:00 [facility] SARS-COV-2 COVID-19 2021-01-27 Completed Unive rsity of PFIZER VACCINE 00:00:00 [facility] SARS-COV-2 COVID-19 2021-01-27 Completed Unive rsity of PFIZER VACCINE 00:00:00 [facility] SARS-COV-2 COVID-19 2021-01-27 Completed Unive rsity of PFIZER VACCINE 00:00:00 [facility] SARS-COV-2 COVID-19 2021-01-27 Completed Unive rsity of PFIZER VACCINE 00:00:00 [facility] SARS-COV-2 COVID-19 2021-01-27 Completed Unive rsity of PFIZER VACCINE 00:00:00 [facility] SARS-COV-2 COVID-19 2021-01-27 Completed Unive rsity of PFIZER VACCINE 00:00:00 [facility] SARS-COV-2 COVID-19 2021-01-07 Completed Unive rsity of PFIZER VACCINE 00:00:00 [facility] SARS-COV-2 COVID-19 2021-01-07 Completed Unive rsity of PFIZER VACCINE 00:00:00 [facility] SARS-COV-2 COVID-19 2021-01-07 Completed Unive rsity of PFIZER VACCINE 00:00:00 [facility] SARS-COV-2 COVID-19 2021-01-07 Completed Unive rsity of PFIZER VACCINE 00:00:00 [facility] SARS-COV-2 COVID-19 2021-01-07 Completed Unive rsity of PFIZER VACCINE 00:00:00 [facility] SARS-COV-2 COVID-19 2021-01-07 Completed Unive rsity of PFIZER VACCINE 00:00:00 [facility] SARS-COV-2 COVID-19 2021-01-07 Completed Unive rsity of PFIZER VACCINE 00:00:00 [facility] COVID-19, mRNA, COVID-19, mRNA, 2021-01-07 Completed [facility] LNP-S, PF, 30 LNP-S, PF, 30 00:00:00 Practice mcg/0.3 mL dose mcg/0.3 mL dose TDAP 2014-07-02 Completed University of 00:00:00 [facility] TDAP 2014-07-02 Completed University of 00:00:00 [facility] TDAP 2014-07-02 Completed University of 00:00:00 [facility] TDAP 2014-07-02 Completed University of 00:00:00 [facility] TDAP 2014-07-02 Completed University of 00:00:00 [facility] TDAP 2014-07-02 Completed University of 00:00:00 [facility] TDAP 2014-07-02 Completed University of 00:00:00 [facility] Tdap Tdap 2014-07-02 Completed [facility] 00:00:00 Practice Vital Signs Vital Name Observation Time Observation Value Comments Source Systolic blood 2022-03-17 23:25:00 157 mm[Hg] Univer sity of pressure [facility] Diastolic blood 2022-03-17 23:25:00 97 mm[Hg] Unive rsity of pressure [facility] Heart rate 2022-03-17 23:25:00 102 /min [facility] Body temperature 2022-03-17 23:25:00 36.89 Dannielle [facility] Respiratory rate 2022-03-17 23:25:00 18 /min [facility] Body height 2022-03-17 23:25:00 182.9 cm [facility] Body weight 2022-03-17 23:25:00 113.399 kg [facility] BMI 2022-03-17 23:25:00 33.91 kg/m2 [facility] Oxygen saturation in 2022-03-17 23:25:00 96 /min [facility] Arterial blood by [facility] Pulse oximetry Branch BP Diastolic 2021-04-07 00:00:00 72 mm[Hg] [facility] Practice Height 2021-04-07 00:00:00 71 [in_i] [facility] Practice BMI (Body Mass 2021-04-07 00:00:00 35.6 kg/m2 [facility] Family Index) Practice BP Systolic 2021-04-07 00:00:00 114 mm[Hg] [facility] Body Weight 2021-04-07 00:00:00 255.4 [lb_av] [facility] Height 2020-01-19 00:00:00 71 [in_i] [facility] Practice BMI (Body Mass 2020-01-19 00:00:00 35[facility]3 [facility] Body Weight 2020-01-19 00:00:00 253 [lb_av] [facility] Height 2020-01-01 00:00:00 71 [in_i] [facility] BMI (Body Mass 2020-01-01 00:00:00 36.1 kg/m2 [facility] e Family Index) Practice Body Weight 2020-01-01 00:00:00 259 [lb_av] [facility] Procedures Procedure Date / Time Performing Clinician Source Performed NOTICE OF PRIVACY 2022-03-17 23:14:49 Doctor Unassigned, [facility] PRACTICES [facility] CONSENT/REFUSAL FOR 2022-03-17 23:14:19 Doctor Unassigned, [facility] DIAGNOSIS AND TREATMENT [facility] INSURANCE CORRESPONDENCE 2022-03-07 05:01:00 Doctor Unassigned, [facility] CT SPINE EXTERNAL STUDY 2021-12-26 16:57:30 Abel Solomon [facility] XR SPINE EXTERNAL STUDY 2021-08-30 22:09:47 Abel Solomon [facility] MRI SPINE EXTERNAL STUDY 2021-08-02 17:24:49 Abel Solomon [facility] MRI SPINE EXTERNAL STUDY 2021-04-12 23:34:35 Abel Solomon [facility] MRI SPINE EXTERNAL STUDY 2021-04-12 23:11:31 Abel Solomon [facility] MRI, lumbar spine, w/wo 2021-04-07 00:00:00 [facility] contrast Practice Back Surgery [facility] Endoscopy [facility] Plan of Care Planned Activity Planned Date Details Comments Source Future Scheduled 2022-03-24 HEPATITIS B VACCINES Met [facility] 13:25:05 (1 of 3 - 3-dose series) [code = HEPATITIS B VACCINES (1 of 3 - 3-dose series)] Future Scheduled 2022-03-24 Hepatitis C screening [facility] Test 13:25:05 (procedure) [code = 582912070] Future Scheduled 2022-03-24 COLONOSCOPY SCREENING [facility] Test 13:25:05 [code = COLONOSCOPY SCREENING] Future Scheduled 2022-03-24 COVID-19 VACCINE (3 - [facility] Test 13:25:05 Booster for Pfizer series) [code = COVID-19 VACCINE (3 - Booster for Pfizer series)] Future Scheduled 2022-03-24 INFLUENZA VACCINE [facility] Test 13:25:05 [code = INFLUENZA VACCINE] Encounters Start End Encounter Admission Attending Care Care Encounter Source Date/Time Date/Time Type Type Clinicians Facility Department ID 2022-04-25 2022-04-25 Outpatient R [facility] [id number] P-20 Univers 15:40:00 15:40:00 LIZZIE [id number] [facility] 2022-03-20 2022-03-20 Patient [facility] 1.2.840.114 [id number] Univers 00:00:00 00:00:00 Secure Msg Meryann SOUTH [id number] ity of [facility] [place] [phone] [address] 2022-03-20 2022-03-20 [facility] 1.2.840.114 [id number] Univers 00:00:00 00:00:00 Secure Msg Meryann SOUTH 350.1.13.10 ity of [facility] [place] [phone] [facility] [address] 2022-03-17 2022-03-17 [facility] [id number] Univers 18:27:00 19:35:00 MARYAM [facility] 2022-03-17 2022-03-17 Emergency [facility] [id number] Univers 18:27:00 19:35:00 Maryam BAKER 350.1.13.10 i [place] [phone] [facility] [address] [place] 2022-03-16 2022-03-16 [facility] [id number] Univers 10:00:00 11:44:07 [facility] 2022-03-16 [facility] [id number] Univers 10:00:00 10:00:00 ALANA [id number] [facility] 2022-03-08 2022-03-08 [facility] 1.2.840.114 [id number] Univers 00:00:00 00:00:00 Lizzie SPECIALTY 350.1.13.10 ity [facility] 4.2.7.2.686 [facility] AT [phone] Ri kyle [place] 198 [facility] 2022-03-07 2022-03-07 Orders Doctor JAY 1.2.840.114 [id number] Univers 00:00:00 00:00:00 Only Unassigned, KAREEM 350.1.13.10 ity of [place] [facility] 4.2.7.2.686 [place] as [phone] [facility] [address] [place] 2022-03-05 2022-03-05 [facility] 1.2.840.114 [id number] Univers 00:00:00 00:00:00 Secure Msg Lizzie SPECIALTY 350.1.13.10 ity of [facility] 4.2.7.2.[address] [facility], [place] AT [phone] Ri kyle [place] 198 [facility] 2022-02-27 2022-02-27 Orders Debbie 1Griselda2.840.1 [id number] Methodi 00:00:00 00:00:00 Only Abel 87792.1.1 349 [facility] 3.430.2.7 Hospit a .3.574773 l .8 2022-02-24 2022-02-24 [facility], 1.2.840.1 [id number] 1479 Methodi 00:00:00 00:00:00 Only Abel Luz50.1.[address] [place] 3.430.2.7 Hospit a .3.266724 l .8 2022-02-22 2022-02-22 [facility], 1.2.840.1 [id number] Methodi 09:28:57 23:59:00 Encounter Abel Luz50.1.[address] [place] 3.430.2.7 Hospit a .3.988791 l .8 2022-02-22 2022-02-22 [facility], 1.2.840.1 [id number] 7965 Methodi 08:00:00 09:53:57 Visit Abel Luz50.1.[address] [place] 3.430.2.7 Hospit a .3.344620 l .8 2022-02-22 2022-02-22 [facility], 1.2.840.1 [id number] 30786 Methodi 09:27:54 09:27:54 Encounter Abel 63328.1.[address] [place] 3.430.2.7 Hospit a .3.417355 l .8 2022-02-22 2022-02-22 [facility], 1.2.840.1 [id number] 05668 Methodi 09:08:32 09:26:00 Encounter Abel 46217.1.[address] [place] 3.430.2.7 Hospit a .3.891187 l .8 2022-02-22 2022-02-22 [facility], 1.2.840.1 [id number] 18346 Methodi 09:08:25 09:26:00 Encounter Abel 97909.1.[address] [place] 3.430.2.7 Hospit a .3.020709 l .8 2022-02-22 2022-02-22 [facility], 1.2.840.1 [id number] 17849 Methodi 08:54:21 09:07:00 Encounter Abel Luz50.1.[address] [place] 3.430.2.7 Hospit a .3.272829 l .8 2022-02-22 2022-02-22 Hospital Debbie, 1.2.840.1 [id number] 83742 Methodi 08:53:41 08:53:41 Encounter Abel 08923.1.[address] [place] 3.430.2.7 Hospit a .3.140933 l .8 2022-02-22 2022-02-22 Outpatient DEBBIE, [facility] [id number] [address] [place] 00:00:00 00:00:[address] AB[address] 2022-02-22 2022-02-22 Orders Debbie, 1.2.840.1 [id number] 3682 Methodi 00:00:00 00:00:00 Only Abel 62474.1.[address] [place] 3.430.2.7 Hospit a .3.354446 l .8 2022-02-22 2022-02-22 Travel 1.2.840.1 1.2.697.517 [id number] Methodi 00:00:00 00:00:[address] 3.430.2.7 0.2.7.3.698 spita .3.446235 084.8 l .8 2022-02-22 2022-02-22 Outpatient DEBBIE, [facility] [id number] [address] [place] 00:00:00 00:00:00 ABEL [address] 2022-02-22 2022-02-22 Outpatient DEBBIE, [facility] [id number] [address] [place] 00:00:00 00:00:00 ABEL [address] 2022-02-22 2022-02-22 Outpatient DEBBIE, [facility] [id number] 9[address] [place] 00:00:00 00:00:00 ABEL [address] 2022-02-22 2022-02-22 Outpatient DEBBIE, [facility] [id number] 9[address] [place] 00:00:00 00:00:00 ABEL [address] 2022-02-22 2022-02-22 Outpatient DEBBIE, [facility] [id number] 9[address] [place] 00:00:00 00:00:00 ABEL [address] 2022-02-22 2022-02-22 Outpatient DEBBIE [facility] [id number] 9[address] [place] 00:00:00 00:00:[address] ABEL [address] 2022-02-20 2022-02-20 Patient Estelle MNKASEY 1.2.840.114 [id number] Univers 00:00:00 00:00:00 Secure [facility] SPECIALTY 350.1.13.10 [facility] 4.2.7.2.686 [facility] AT [phone] Ri dical GAMALIEL 198 [facility] 2021-08-03 2021-08-03 Outpatient Pederson-Gor_M VFP VFP [id number] [id number] [facility] 01:51:00 01:51:00 Family Practic e 2021-08-02 2021-08-02 Outpatient Pederson-Gor_M VFP VFP 2998 88 [facility] 12:46:00 12:46:00 Family Practic e 2021-04-07 2021-04-07 Outpatient Pederson-Gor_M VFP VFP 2998 88 [facility] 05:07:00 05:07:00 59722 Family Practic e 2021-04-07 2021-04-07 Margo N VFP [place] - [id number] V illage 00:00:00 00:00:00 RITA Stark: [facility] [address] Medical - Practi c Shadow VM_HOU_Shad e [place] [facility], [address], [place] [address] , Ph. 2020-11-24 2020-11-24 Outpatient Pederson-Gor_M VFP VFP 2998 [id number] [facility] 06:35:00 06:35:00 96987 Family Practic e 2020-11-18 2020-11-18 Outpatient Pederson-Gor_M VFP VFP 2998 [id number] [facility] 05:16:00 05:16:00 41351 Family Practic e 2020-03-12 2020-03-12 Outpatient Pederson-Gor_M_ VFP VFP 299 [id number] [facility] 02:52:00 02:52:00 BRIGDET 46920 Family Practic e 2020-02-15 2020-02-15 Outpatient Pederson-Gor_M_ VFP VFP 299 888-202 [facility] 12:00:00 12:00:00 LENCHO 84211 Family Practic e 2020-01-20 2020-01-20 Outpatient Pederson-Gor_M_ VFP VFP 299 888-202 [facility] 06:07:00 06:07:00 BRIDGET 87293 Family Practic e 2020-01-19 2020-01-19 Outpatient Pederson-Gor_M_ VFP VFP 299 888-202 [facility] 12:59:00 12:59:00 BRIDGET 31687 Family Practic e 2020-01-19 2020-01-19 Zohra O VFP - [id number] [facility] 00:00:00 00:00:00 Pippa [facility] Thomas pritchard MD: [id number] [place] [address], ([place] [address] , Ph. 2020-01-11 2020-01-11 Outpatient Pederson-Gor_M_ VFP VFP 299 888-202 [facility] 12:09:00 12:09:00 BRIDGET 57765 Family Practic e 2020-01-05 2020-01-05 Outpatient Pederson-Gor_M_ VFP VFP 299 888-202 [facility] 07:54:00 07:54:00 BRIDGET 14412 Family Practic e 2020-01-01 2020-01-01 Outpatient Pederson-Gor_M_ VFP VFP 299 888-202 [facility] 09:15:00 09:15:00 BRIDGET 65869 Family Practic e 2020-01-01 2020-01-01 Zohra O VFP [place] - [id number] [facility] 00:00:00 00:00:00 Pippa [facility] Thomas pritchard MD: [id number] [place] [address], ([facility]) [place] [address] , Ph. Results This patient has no known results.
[2022-03-24 15:04] LABS: Absolute Lymphocytes (CBC) 2.7 K/uL (0.7-4.9); Hematocrit 40.9 % (39.6-49.0); Lymphocytes % 28.5 % (15.3-44.8); MCV 82.6 fL (80-100); MPV 7.5 fL (7.6-11.3); RBC Red Blood Cell Count 4.95 M/uL (4.33-5.43)
--- NOTE | 2022-03-24 15:15 | RAD REPORT ---
EXAM DESCRIPTION: RAD - Chest Single View - 03/24/2022 3:00 pm CLINICAL HISTORY: CHEST PAIN Chest pain. COMPARISON: CHEST PA AND LAT 2 VIEW dated 06/29/2015; CHEST PA AND LAT 2 VIEW dated 04/15/2009; CHES T PA AND LAT 2 VIEW dated 12/05/2002 FINDINGS: Portable technique limits examination quality. The lungs are mildly emphysematous but grossly clear. The heart is normal in size. No displaced fract ures. IMPRESSION: Mild COPD.
[2022-03-24] MEDS ORDERED: ONDANSETRON 4 MG/2 ML VIAL ONE (15:21)
[2022-03-24] MEDS ORDERED: MORPHINE 4 MG/ML SYR ONE (15:23)
[2022-03-24 15:39] LABS: Potassium 3.6 mmol/L (3.5-5.1); Troponin High Sensitivity 4.5 pg/mL (<58.9)
--- NOTE | 2022-03-24 16:11 | RAD REPORT ---
EXAM DESCRIPTION: CT - Angio Aorta For Dissection - 03/24/2022 3:58 pm CLINICAL HISTORY: Chest pain radiating to the back. HTN, chest/abd/back pain COMPARISON: No comparisons TECHNIQUE: CT angiography of the aorta was performed with MIPs. All CT scans are performed using dose optimization technique as appropriate and may include automated exposure control or mA/KV adjustment according to patient size. FINDINGS: A left aortic arch is present with normal branching pattern of the great vessels.No acute aortic finding is seen such as aneurysm, penetrating ulcer or dissection. The celiac axis, SMA, JEAN and renal arteries are patent. No evidence of pulmonary embolism. The lungs are clear. The liver demonstrates no focal mass or biliary dilatation.The spleen, pancreas, adrenal glands and k idneys are within normal limits for arterial phase imaging. No bowel obstruction, free fluid or abscess.No pathologic enlarged lymphadenopathy identified. Mild lumbosacral degenerative changes.Fat containing left inguinal hernia. IMPRESSION: No acute aortic finding is demonstrated.
--- NOTE | 2022-03-24 17:32 | ER ---
Nurse's Notes [facility] Name: Adryan Kimball Age: 46 yrs Sex: Male : 1975 Arrival Date: 03/24/2022 Time: 14:35 Bed 3 Private MD: Diagnosis: Chest pain, unspecified;Essential (primary) hypertension Presentation: 03/24 14:47 Chief complaint: EMS states: HTN, CISSE AND CP. Coronavirus screen: At this time, the bp client does not indicate any symptoms associated with coronavirus-19. Ebola Screen: No symptoms or risks identified at this time. Initial Sepsis Screen: Does the patient meet any 2 criteria? HR > 90 bpm. No. Patient's initial sepsis screen is negative. Does the patient have a suspected source of infection? No. Patient's initial sepsis screen is negative. Risk Assessment: Do you want to hurt yourself or someone else? Patient reports no desire to harm self or others. Onset of symptoms was March 24, 2022. Care prior to arrival: Medication(s) given: ASA, 81 mg, x 4, IV initiated. 20 GA, in the left antecubital area. 14:47 Method Of Arrival: EMS: [facility] bp 14:47 Acuity: LILIA 3 bp Triage Assessment: 14:49 General: Appears distressed, uncomfortable, Behavior is cooperative, appropriate for bp age, anxious. Pain: Complains of pain in chest. EENT: No deficits noted. Neuro: Level of Consciousness is awake, alert, obeys commands, Oriented to person, place, time, situation. Cardiovascular: Rhythm is sinus tachycardia. Respiratory: No deficits noted. GI: No signs and/or symptoms were reported involving the gastrointestinal system. : No signs and/or symptoms were reported regarding the genitourinary system. Derm: No deficits noted. Musculoskeletal: No deficits noted. Historical: - Allergies: 14:49 Naprosyn; bp - Home Meds: 14:49 Flexeril Oral [Active]; gabapentin [Active]; Tramadol Oral [Active]; bp - PMHx: 14:49 "extreme anxiety"; Chronic back pain; bp - PSHx: 14:49 laminectomy; bp - Immunization history:: Adult Immunizations up to date. - Social history:: Smoking status: Patient denies any tobacco usage or history of. - Family history:: not pertinent. - Hospitalizations: : No recent hospitalization is reported. Screenin:52 Abuse screen: Denies threats or abuse. Denies injuries from another. Nutritional bp screening: No deficits noted. Tuberculosis screening: No symptoms or risk factors identified. Fall Risk None identified. Assessment: 14:51 General: SEE TRIAGE NOTE. bp 16:29 Reassessment: No changes from previously documented assessment. Patient and/or family bp updated on plan of care and expected duration. Pain level reassessed. 17:52 Reassessment: PT D/C HOME AMBULATORY. bp Vital Signs: 14:47 BP 160 / 94; Pulse 107; Resp 16; Temp 98; Pulse Ox 98% ; bp 16:28 BP 124 / 75; Pulse 70; Resp 15; Pulse Ox 100% ; bp 17:52 BP 124 / 90; Pulse 75; Resp 16; Pulse Ox 99% ; bp ED Course: 14:35 Patient arrived in ED. iw 14:35 Dung Bocanegra, KATERINA is Primary Nurse. bp 14:36 Solo Donahue MD is Attending Physician. rn 14:49 Triage completed. bp 14:49 Arm band placed on. bp 14:52 Patient has correct armband on for positive identification. Bed in low position. Call bp light in reach. Side rails up X2. 14:52 Maintain EMS IV. Dressing intact. Good blood return noted. Site clean \\T\\ dry. Gauge \\T\\ bp site: 20 GA LEFT AC. 15:01 XRAY Chest (1 view) In Process Unspecified. EDMS 17:52 No provider procedures requiring assistance completed. IV discontinued, intact, bp bleeding controlled, No redness/swelling at site. Pressure dressing applied. Administered Medications: 15:00 Drug: Zofran (Ondansetron) 4 mg Route: IVP; Site: left antecubital; bp 17:00 Follow up: Response: No adverse reaction bp 15:00 Drug: morphine 4 mg Route: IVP; Infused Over: 4 mins; Site: left antecubital; bp 17:00 Follow up: Response: No adverse reaction; Pain is decreased bp Medication: 17:52 VIS not applicable for this client. bp Outcome: 17:32 Discharge ordered by . rn 17:52 Discharged to home ambulatory, with family. bp 17:52 Condition: stable 17:52 Discharge instructions given to patient, Instructed on discharge instructions, follow up and referral plans. Demonstrated understanding of instructions, follow-up care. 17:59 Patient left the ED. bp Signatures: Dispatcher [employer] Carly Morrison, RN RN Solo Munoz MD MD rn Peltier, Brian, RN RN bp
--- NOTE | 2022-03-24 17:32 | EDPHYS ---
Physician Documentation [facility] Name: Adryan Kimball Age: 46 yrs Sex: Male : 1975 Arrival Date: 03/24/2022 Time: 14:35 Bed 3 Private MD: ED Physician Solo Donahue HPI: 03/24 17:22 This 46 yrs old Male presents to ER via EMS with complaints of high blood pressure, rn chest pain. 17:22 The patient or guardian reports chest pain that is located primarily in the substernal rn area. Onset: 2 week(s) ago. The pain radiates to Associated signs and symptoms: Pertinent positives: palpitations, Pertinent negatives: abdominal pain, headache, syncope, vomiting. The chest pain is described as aching. Duration: The patient or guardian reports multiple episodes, that are intermittent. Modifying factors: The symptoms are alleviated by nothing. the symptoms are aggravated by nothing. Severity of pain: At its worst the pain was moderate in the emergency department the pain has improved. The patient has not experienced similar symptoms in the past. The patient has not recently seen a physician. Historical: - Allergies: 14:49 Naprosyn; bp - Home Meds: 14:49 Flexeril Oral [Active]; gabapentin [Active]; Tramadol Oral [Active]; bp - PMHx: 14:49 "extreme anxiety"; Chronic back pain; bp - PSHx: 14:49 laminectomy; bp - Immunization history:: Adult Immunizations up to date. - Social history:: Smoking status: Patient denies any tobacco usage or history of. - Family history:: not pertinent. - Hospitalizations: : No recent hospitalization is reported. ROS: 17:25 Constitutional: Negative for fever, chills, and weight loss, Eyes: Negative for injury, rn pain, redness, and discharge, Neck: Negative for injury, pain, and swelling, Cardiovascular: Negative for edema Respiratory: Negative for shortness of breath, cough, wheezing, and pleuritic chest pain, Abdomen/GI: Negative for abdominal pain, nausea, vomiting, diarrhea, and constipation, Back: Negative for injury MS/Extremity: Negative for injury and deformity, Skin: Negative for injury, rash, and discoloration, Neuro: Negative for headache, weakness, numbness, tingling, and seizure. Exam: 15:45 ECG was reviewed by the Attending Physician. rn 17:25 Constitutional: This is a well developed, well nourished patient who is awake, alert, rn appears anxious Head/Face: Normocephalic, atraumatic. Cardiovascular: Regular rate and rhythm. No pulse deficits. Respiratory: No increased work of breathing, no retractions or nasal flaring. Abdomen/GI: Soft, non-tender Skin: Warm, dry MS/ Extremity: Pulses equal, no cyanosis. Neuro: Awake and alert, GCS 15 Vital Signs: 14:47 BP 160 / 94; Pulse 107; Resp 16; Temp 98; Pulse Ox 98% ; bp 16:28 BP 124 / 75; Pulse 70; Resp 15; Pulse Ox 100% ; bp 17:52 BP 124 / 90; Pulse 75; Resp 16; Pulse Ox 99% ; bp MDM: 14:36 Patient medically screened. rn 17:31 Differential diagnosis: acute myocardial infarction, acute pericarditis, anxiety, rn costochondritis, esophagitis, gastritis, gastroesophageal reflux disease (GERD), pleurisy, pneumothorax, thoracic aortic disection. Data reviewed: vital signs, nurses notes, lab test result(s), EKG, radiologic studies, CT scan, and as a result, I will discharge patient. Counseling: I had a detailed discussion with the patient and/or guardian regarding: the historical points, exam findings, and any diagnostic results supporting the discharge/admit diagnosis, lab results, radiology results, the need for outpatient follow up, to return to the emergency department if symptoms worsen or persist or if there are any questions or concerns that arise at home. Special discussion: I discussed with the patient/guardian in detail that at this point there is no indication for admission to the hospital. It is understood, however, that if the symptoms persist or worsen the patient needs to return immediately for re-evaluation. 03/24 14:48 Order name: Basic Metabolic Panel; Complete Time: 16:03/24 14:48 Order name: CBC with Diff; Complete Time: 16:03/24 14:48 Order name: NT PRO-BNP; Complete Time: 16:03/24 14:48 Order name: Troponin HS; Complete Time: 16:03/24 14:48 Order name: XRAY Chest (1 view); Complete Time: 16:03/24 14:48 Order name: CT Aorta for Dissection rn 03/24 14:48 Order name: EKG; Complete Time: 14:48 rn 03/24 14:48 Order name: Cardiac monitoring; Complete Time: 14:54 rn 03/24 14:48 Order name: EKG - Nurse/Tech; Complete Time: 14:54 rn 03/24 14:48 Order name: IV Saline Lock; Complete Time: 14:54 rn 03/24 14:48 Order name: Labs collected and sent; Complete Time: 14:54 rn 03/24 16:12 Order name: CT; Complete Time: 17:30 EDMS 03/24 14:48 Order name: O2 Per Protocol; Complete Time: 14:54 rn 03/24 14:48 Order name: O2 Sat Monitoring; Complete Time: 14:54 rn EC:45 Rate is 72 beats/min. Rhythm is regular. QRS Melba is Normal. VA interval is normal. QRS rn interval is normal. QT interval is normal. No Q waves. T waves are Normal. No ST changes noted. Clinical impression: Normal ECG. Interpreted by me. Reviewed by me. Administered Medications: 15:00 Drug: Zofran (Ondansetron) 4 mg Route: IVP; Site: left antecubital; bp 17:00 Follow up: Response: No adverse reaction bp 15:00 Drug: morphine 4 mg Route: IVP; Infused Over: 4 mins; Site: left antecubital; bp 17:00 Follow up: Response: No adverse reaction; Pain is decreased bp Disposition Summary: 03/24/22 17:32 Discharge Ordered Location: Home rn Problem: new rn Symptoms: have improved rn Condition: Stable rn Diagnosis - Chest pain, unspecified rn - Essential (primary) hypertension rn Followup: rn - With: Private Physician - When: As needed - Reason: Recheck today's complaints, Re-evaluation by your physician Discharge Instructions: - Discharge Summary Sheet rn - Nonspecific Chest Pain, Adult rn - Hypertension, Adult rn Forms: - Medication Reconciliation Form rn - Thank You Letter rn - 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
[2022-03-26 06:57] VITALS: TEMP 98
[2022-03-26 07:02] VITALS: BP 124/90; O2SAT 99
--- NOTE | 2022-03-27 14:13 | EKG ---
Test Date: 2022-03-24 Test Time: 14:47:16 Aquarium Tank Attendant: BP MEASUREMENT RESULTS: Intervals: Rate: 72 UT: 144 QRSD: 100 QT: 360 QTc: 394 [place]: P: 36 UT: 144 QRS: 24 T: 32 INTERPRETIVE STATEMENTS: Normal sinus rhythm Normal ECG Compared to ECG 10/18/2007 06:47:25 Sinus arrhythmia no longer present Electronically Signed On 03-27-22 14:10:05 CDT by Roosevelt Wolfe
== END 2022-03-24 17:59 | disposition home or self-care (01) ==
LOC: ER 14:33
DX: R07.9 Chest pain, unspecified (principal); I10 Essential (primary) hypertension; F41.9 Anxiety disorder, unspecified; Z88.8 Allergy status to other drugs, medicaments and biological substances
CPT/HCPCS: 36415; 71045; 71275; 74175; 80048; 83880; 84484; 85025; 93005; 96374; 96375; 99284; J2405; Q9967